=== PATIENT | female | born 2000 | race Caucasian/White ===

== ENCOUNTER 2023-05-31 19:23 | Emergency (ER) | payer OTHER ==
[2023-05-31 19:35] VITALS: BP 143/83; PULSE 99; RESP 18; TEMP 98; BMI 34.2
[2023-05-31] MEDS ORDERED: LIDOCAINE 4% PATCH TP ONE (21:06)
[2023-05-31] MEDS ORDERED: CYCLOBENZAPRINE HCL 10 MG TABLET (FP) ONE (21:06)
[2023-05-31] MEDS ORDERED: KETOROLAC TROMETHAMINE 30 MG/1 ML VIAL ONE (21:06)
[2023-05-31] MEDS: LIDOCAINE 5% TOPICAL PATCH TP ONE (21:15)
[2023-05-31] MEDS: KETOROLAC TROMETHAMINE 30 MG/1 ML VIAL IM ONE (21:15)
[2023-05-31] MEDS: CYCLOBENZAPRINE HCL 10 MG TABLET (FP) PO ONE (21:15)
[2023-05-31] MEDS: CYCLOBENZAPRINE HCL 5 MG TABLET PO ONE (21:16)
[2023-05-31] MEDS ORDERED: LIDOCAINE PATCH REMOVAL MC SCH (22:00)
== END 2023-05-31 22:00 | disposition home or self-care (01) ==
LOC: JERFT 19:23 → JER 19:23 → JERFT 22:00
PROC: 3E0233Z Introduction of Anti-inflammatory into Muscle, Percutaneous Approach (ICD-10-PCS; principal; 2023-05-31)
DX: M54.6 Pain in thoracic spine (principal)
CPT/HCPCS: 99284-25